=== PATIENT | female | born 1990 | race Caucasian/White ===

== ENCOUNTER 2021-12-06 22:32 | Inpatient (IN) | payer OTHER ==
[2021-12-06] MEDS ORDERED: Famotidine/PF 20 mg/2ml Vial SLOW IVP PRN (23:01)
[2021-12-06] MEDS ORDERED: Bicitra 30 ML UDCUP PO PRN (23:01)
[2021-12-06] MEDS ORDERED: Ondansetron PF 4 MG/2 ML Vial IVP PRN (23:01)
[2021-12-06] MEDS ORDERED: hydrALAZINE 20 MG/ML VIAL SLOW IVP PRN (23:01)
[2021-12-06] MEDS ORDERED: hydrALAZINE 20 MG/ML VIAL ONE (23:13)
[2021-12-06] MEDS ORDERED: Lactated Ringer's 1,000 ML IV SCH (23:15)
[2021-12-06 23:18] LABS: Hemoglobin 11.8 g/dL (12.0-15.5); Mean Corpuscular HGB CONC 33.7 g/dL (32.0-36.0); Mean Corpuscular Hemoglobin 29.8 pg (27.0-33.0); Mean Corpuscular Volume 88.4 fl (81.6-98.3); Mean Platelet Volume 11.6 fl (7.4-10.4); Platelet Count 183 10x3/uL (150-450); RBC Distribution Width 13.4 % (11.5-14.5); Red Blood Cell (RBC) Count 3.96 10x6/uL (3.90-5.03); White Blood Cell (WBC) Count 11.3 10x3/uL (3.5-10.5)
[2021-12-06] MEDS ORDERED: Oxytocin 10 UNITS/ML VIAL ONE (23:18)
[2021-12-06] MEDS ORDERED: Morphine PF 10 MG/10 ML VIAL ONE (23:20)
[2021-12-06] MEDS ORDERED: Phenylephrine 40 MG/NS 250 ML 250 ML ONE (23:21)
[2021-12-06] MEDS ORDERED: Azithromycin 500 MG VIAL ONE (23:23)
[2021-12-06] MEDS ORDERED: ceFAZolin 2 GM/Dextrose 50 ML IVPB ONE (23:23)
[2021-12-06] MEDS ORDERED: Famotidine/PF 20 mg/2ml Vial ONE (23:24)
[2021-12-06] MEDS ORDERED: Ondansetron PF 4 MG/2 ML Vial ONE (23:42)
[2021-12-06] MEDS ORDERED: Dexamethasone 4 mg/ml Vial ONE (23:42)
[2021-12-06 23:49] LABS: Hep B Surf Ag Non-Reactive S/CO (NonReactive); Syphilis Antibody Nonreactive (Nonreactive); Syphilis Antibody Index 0.02 S/CO (<1.00 Non-Reactive)
[2021-12-07 00:06] LABS: HBSAg Index 0.17 S/CO (0-0.99)
[2021-12-07] MEDS ORDERED: Metoclopramide HCl 10 MG/2 ML VIAL ONE (00:08)
[2021-12-07] MEDS ORDERED: Ketorolac Tromethamine 30 MG/ML VIAL ONE (00:17)
[2021-12-07] MEDS ORDERED: Oxytocin 10 UNITS/ML VIAL ONE (00:17)
[2021-12-07] MEDS ORDERED: diphenhydrAMINE 50 MG/ML VIAL ONE (00:30)
[2021-12-07] MEDS ORDERED: Fentanyl 100 MCG/2 ML VIAL SLOW IVP PRN (00:50)
[2021-12-07] MEDS ORDERED: Ketorolac Tromethamine 30 MG/ML VIAL IVP PRN (00:50)
[2021-12-07] MEDS ORDERED: Meperidine HCl/PF 25 MG/ML VIAL SLOW IVP PRN (00:50)
[2021-12-07] MEDS ORDERED: Promethazine HCl 25 MG SUPP PR PRN (00:50)
[2021-12-07] MEDS ORDERED: Hydrocerin (Eucerin) Cream 120 gm Jar TOP PRN (00:50)
[2021-12-07] MEDS ORDERED: Ondansetron PF 4 MG/2 ML Vial IVP PRN ×2 (00:50→03:17)
[2021-12-07] MEDS ORDERED: Naloxone HCl 0.4 mg/ml Vial IV PRN (00:50)
[2021-12-07] MEDS ORDERED: Ondansetron HCl/PF 4 MG/2 ML Vial IVP PRN (00:50)
[2021-12-07] MEDS ORDERED: diphenhydrAMINE 50 MG/ML VIAL IVP PRN (00:50)
[2021-12-07] MEDS ORDERED: Promethazine HCl 25 MG/ML VIAL IM PRN ×2 (00:50→03:17)
[2021-12-07] MEDS ORDERED: Naloxone HCl 0.4 mg/ml Vial IVP PRN ×2 (00:50)
[2021-12-07] MEDS ORDERED: Communication Order-Pharmacy FS SCH (01:00)
[2021-12-07] MEDS ORDERED: Ketorolac Tromethamine 30 MG/ML VIAL IVP SCH (01:00)
[2021-12-07 02:56] VITALS: BMI 34.7
[2021-12-07] MEDS ORDERED: Azithromycin 500 MG in Sodium Chloride 0.9% 250 ML 250 ML IVPB SCH (03:15)
[2021-12-07] MEDS ORDERED: ceFAZolin 2 GM/Dextrose 50 ML 2 GM in Premix Bag 1 BAG IVPB SCH (03:15)
[2021-12-07] MEDS ORDERED: Boostrix 0.5 ML (Tdap) VIAL IM ONE (03:17)
[2021-12-07] MEDS ORDERED: Bisacodyl 10 MG SUPP PR PRN (03:17)
[2021-12-07] MEDS ORDERED: Lanolin Ointment 7 GM TUBE TOP PRN (03:17)
[2021-12-07] MEDS ORDERED: diphenhydrAMINE 25 MG CAP PO PRN (03:17)
[2021-12-07] MEDS ORDERED: hydrALAZINE 20 MG/ML VIAL SLOW IVP PRN (03:17)
[2021-12-07] MEDS ORDERED: NS w/ Oxytocin 30 units 500 ML IV SCH (03:17)
[2021-12-07] MEDS: Ketorolac Tromethamine 30 MG/ML VIAL IVP SCH ×3 (05:47→17:18)
[2021-12-07 06:19] LABS: Hemoglobin 10.3 g/dL (12.0-15.5); Mean Corpuscular HGB CONC 32.9 g/dL (32.0-36.0); Mean Corpuscular Hemoglobin 29.9 pg (27.0-33.0); Mean Platelet Volume 11.4 fl (7.4-10.4); Platelet Count 169 10x3/uL (150-450); RBC Distribution Width 13.4 % (11.5-14.5); Red Blood Cell (RBC) Count 3.44 10x6/uL (3.90-5.03); White Blood Cell (WBC) Count 16.8 10x3/uL (3.5-10.5)
[2021-12-07] MEDS: Ferrous Sulfate 325 MG TAB PO SCH ×2 (08:36→22:58)
[2021-12-07] MEDS: Simethicone Chewable 80 MG TAB PO PRN ×2 (09:10→13:59)
[2021-12-07] MEDS: Docusate 100 MG CAP PO SCH ×2 (09:10→20:50)
[2021-12-07] MEDS: Prenatal Vitamin 1 TAB PO SCH (09:10)
[2021-12-07] MEDS ORDERED: HYDROcodone/Acetaminophen 5/325 mg Tablet PO PRN (13:00)
[2021-12-07] MEDS ORDERED: Meperidine HCl/PF 25 MG/ML VIAL IM PRN (13:00)
[2021-12-07] MEDS: HYDROcodone/Acetaminophen 5/325 mg Tablet PO PRN ×2 (13:59→23:27)
[2021-12-07 15:25] LABS: SARS-CoV-2 PCR by NAA DETECTED (NotDetected)
[2021-12-08] MEDS: Ketorolac Tromethamine 30 MG/ML VIAL IVP SCH (00:48)
[2021-12-08] MEDS: HYDROcodone/Acetaminophen 5/325 mg Tablet PO PRN ×4 (03:54→20:00)
[2021-12-08] MEDS: Ibuprofen 800 MG TAB PO SCH ×3 (06:22→22:30)
[2021-12-08] MEDS: Ferrous Sulfate 325 MG TAB PO SCH ×2 (08:10→22:30)
[2021-12-08] MEDS: Prenatal Vitamin 1 TAB PO SCH (08:10)
[2021-12-08] MEDS: Docusate 100 MG CAP PO SCH ×2 (08:11→22:30)
[2021-12-08 18:13] LABS: ALT (SGPT) 18 U/L (8-55); AST (SGOT) 26 U/L (5-34); Albumin 3.2 g/dL (3.5-5.0); Alkaline Phosphatase 105 U/L (40-110); Anion Gap 12 mmol/L (10-20); BUN (Urea Nitrogen) 10 mg/dL (7.0-18.7); Bilirubin, Total 0.2 mg/dL (0.2-1.2); Calc. Creatinine Clearance 165 mL/min (70-130); Calcium 8.8 mg/dL (7.8-10.44); Carbon Dioxide 23 mmol/L (22-29); Chloride 106 mmol/L (98-107); Globulin 2.6 g/dL (2.4-3.5); Glucose 149 mg/dL (70-105); Potassium 3.8 mmol/L (3.5-5.1); Protein, Total 5.8 g/dL (6.0-8.3); Sodium 137 mmol/L (136-145)
[2021-12-08 18:34] LABS: Free T4 (Free Thyroxine) 0.72 ng/dL (0.70-1.48); Thyroid Stimulating Hormone 6.8922 uIU/mL (0.35-4.94)
[2021-12-09] MEDS: HYDROcodone/Acetaminophen 5/325 mg Tablet PO PRN (03:09)
[2021-12-09] MEDS: Ibuprofen 800 MG TAB PO SCH ×2 (06:18→14:31)
[2021-12-09] MEDS: Ferrous Sulfate 325 MG TAB PO SCH (07:27)
[2021-12-09] MEDS: Docusate 100 MG CAP PO SCH (09:15)
[2021-12-09] MEDS: Prenatal Vitamin 1 TAB PO SCH (09:15)
[2021-12-09 12:27] VITALS: BP 132/83; TEMP 98
== END 2021-12-09 17:47 | disposition home or self-care (01) | DRG 788 ==
LOC: CSHLD 22:32 → CSHPP 12-07 03:43 → CSHPED 12-07 17:31
PROVIDERS: ADMIT Family Medicine; ATTEND Family Medicine
PROC: 10D00Z1 Extraction of Products of Conception, Low, Open Approach (ICD-10-PCS; principal; 2021-12-07)
DX: O34.211 Maternal care for low transverse scar from previous cesarean delivery (principal); Z37.0 Single live birth; Z20.822 Contact with and (suspected) exposure to COVID-19; O24.429 Gestational diabetes mellitus in childbirth, unspecified control; Z3A.38 38 weeks gestation of pregnancy; O75.82 Onset (spontaneous) of labor after 37 completed weeks of gestation but before 39 completed weeks gestation, with delivery by (planned) cesarean section
CPT/HCPCS: 36415; 80053; 84439; 84443; 85027; 86780; 86850; 86900; 86901; 87340; 93005; 93010; J0360; J1100; J1200; J1885; J2274; J2310; J2405; J2590; J2765; U0003; U0005

== ENCOUNTER 2024-09-18 08:34 | Emergency (ER) | payer OTHER ==
[2024-09-18] MEDS ORDERED: Dexamethasone 10 MG/ML VIAL ONE (09:13)
[2024-09-18] MEDS ORDERED: Acetaminophen 500 MG TAB ONE (09:13)
== END 2024-09-18 09:24 | disposition home or self-care (01) ==
LOC: CSHERS 08:34
DX: J02.9 Acute pharyngitis, unspecified (principal); I11.0 Hypertensive heart disease with heart failure; I50.9 Heart failure, unspecified; Z55.0 Illiteracy and low-level literacy
CPT/HCPCS: 99283; J1100

== ENCOUNTER 2024-12-24 17:46 | Emergency (ER) | payer OTHER ==
[2024-12-24] MEDS ORDERED: HYDROcodone/Acetaminophen 5/325 mg Tablet ONE (18:14)
== END 2024-12-24 19:05 | disposition home or self-care (01) ==
LOC: CSHERS 17:46
DX: K08.89 Other specified disorders of teeth and supporting structures (principal); I11.0 Hypertensive heart disease with heart failure; I50.9 Heart failure, unspecified; F17.290 Nicotine dependence, other tobacco product, uncomplicated
CPT/HCPCS: 99282